=== PATIENT | male | born 1945 | race Caucasian/White ===

== ENCOUNTER 2019-12-17 05:51 | Day surgery (SDC) | payer OTHER ==
[2019-12-12 15:37] VITALS: BMI 29.0
[2019-12-17] MEDS ORDERED: oxyCODONE HCL 10 MG SUSTAINED ACTING TABLET PO ONE ×2 (06:06→07:45)
[2019-12-17] MEDS ORDERED: methylPREDNISolone ACET (DEPO) 40 MG/1 ML VIAL ONE (07:04)
[2019-12-17] MEDS ORDERED: LIDOCAINE 1%/EPI 1:100000 (20 ML MULTI DOSE VIAL) ONE (07:04)
[2019-12-17] MEDS ORDERED: GUM MASTIC/STORAX/MSAL/ALCOHOL 1 DRP DROPSBTL MC ONE (07:04)
[2019-12-17] MEDS ORDERED: MIDAZOLAM HCL 2 MG/2 ML SINGLE DOSE VIAL ONE (07:06)
[2019-12-17] MEDS ORDERED: BUPIVACAINE HCL/PF 0.5% (5 MG/ML) 30 ML VIAL IJ ONE (07:06)
[2019-12-17] MEDS ORDERED: fentaNYL CITRATE 250 MCG/5 ML VIAL ONE (07:09)
[2019-12-17] MEDS ORDERED: PROPOFOL 20 ML ONE ×2 (07:09)
[2019-12-17] MEDS ORDERED: SUCCINYLCHOLINE CHLORIDE 200 MG/10 ML SYRINGE ONE (07:10)
--- NOTE | 2019-12-17 08:07 | HP ---
History & Physical Update - History History: No Change - Physical Physical: No Change - Assessment Assessment: No Change - Plan Plan: No Change
[2019-12-17] MEDS ORDERED: ceFAZolin SODIUM 1 GM VIAL ONE (08:54)
[2019-12-17] MEDS ORDERED: ONDANSETRON 4 MG/2 ML VIAL ONE (08:54)
[2019-12-17] MEDS ORDERED: DEXAMETHASONE SOD PHOSPHATE 4 MG/1 ML VIAL ONE (08:54)
[2019-12-17] MEDS ORDERED: LIDOCAINE 1%/EPI 1:100000 (20 ML MULTI DOSE VIAL) INF ONE (09:15)
[2019-12-17] MEDS ORDERED: methylPREDNISolone ACET (DEPO) 40 MG/1 ML VIAL IM ONE (10:16)
--- NOTE | 2019-12-17 10:48 | OP ---
Operative Note - Note: Operative Date: 12/17/19 Pre-Operative Diagnosis: spinal stenosis Operation: laminectomy of L1-2, L2-3 Surgeon: Shimon Boss Supervisor Machine Setter: Mandie Hernandez Anesthesiologist/CURTAIN INSPECTOR: Amish Jo Anesthesia: Spinal Estimated Blood Loss (mls): 20 Fluid Volume Replaced (mls): 1,300 Operative Report Dictated: Yes
--- NOTE | 2019-12-17 10:50 | SURG ---
Surgery Food And Drug Inspector Note Food And Drug Inspector: Mandie Hernandez PA-C Date of Service: 12/17/19 Diagnosis: spinal stenosis Procedure: laminectomy of L1-2, L2-3 I was present for the entirety of the operative procedure. For further detail, please refer to operative report. Visit type - Case Type Case Type: Scheduled - Emergency Emergency Visit: No - New patient This patient is new to me today: Yes Date on this admission: 12/17/19
[2019-12-17] MEDS ORDERED: ONDANSETRON 4 MG/2 ML VIAL IVPUSH PRN (11:01)
[2019-12-17] MEDS ORDERED: LACTATED RINGERS SOLUTION 1,000 ML IV SCH (11:15)
[2019-12-17 13:46] VITALS: BP 129/68; PULSE 70
[2019-12-17 14:36] VITALS: TEMP 98.1
--- NOTE | 2019-12-17 16:51 | OP ---
DATE OF OPERATION: 12/17/2019 PREOPERATIVE DIAGNOSIS: Spinal stenosis L1-L3. POSTOPERATIVE DIAGNOSIS: Spinal stenosis L1-L3. PROCEDURE PERFORMED: Laminectomy L1-L3. SURGEON: Shimon Boss MD GASKET INSPECTOR: JOHN Hassan ESTIMATED BLOOD LOSS: 50 mL. INTRAVENOUS FLUIDS: Per Anesthesia. ANESTHESIA: Spinal/TLIP block. COMPLICATIONS: There were none. DISPOSITION: Patient brought to the PACU in stable condition. INDICATIONS FOR SURGERY: Patient is a 74-year-old gentleman who has been suffering from pain from his back down his legs. X-rays and MRI were completed, which noted that he had spinal stenosis at L1 down to L3. He had gone through an exhaustive course of treatment for this, which included medications, physical therapy as well as injections. Unfortunately, his pain continued to persist despite all this. At this point, risks, benefits, and alternatives were discussed, and the patient consented to surgery. DESCRIPTION OF PROCEDURE: Patient brought to the operating room by the Anesthesia staff. After appropriate patient identification was performed, spinal anesthesia was given. A TLIP block was also given. Patient was able to position himself prone onto the OR table with all areas and bony prominences well padded at this time. Two needles were placed into his back to danielito off the L1 to L3 segment. X-ray was taken to confirm this was correct. The needle was removed at this time, and the interspinous ligament at L1-2 and L2-3 was marked off. The spinous process of L2 was removed. The lamina of L2 was removed. The flavum was removed. A complete decompression was performed such that by the end of the procedure the L2 and L3 nerve roots appeared to be well decompressed. All bleeding was well controlled at this time. Steroid was placed over the nerve root. FloSeal was placed over that. The fascia was closed with a No. 1 Vicryl suture. Subcutaneous tissue was closed with 2-0 Vicryl suture. Skin was closed with 3-0 Monocryl suture. Dermabond was applied. Steri-Strips were applied. A sterile dressing was applied. Patient was placed supine on the OR bed, brought to the PACU in stable condition. SHIMON BOSS M.D. ANNA/[id number]
== END 2019-12-17 14:30 | disposition home or self-care (01) ==
LOC: FASU 05:51
PROVIDERS: ATTEND Orthopaedic Surgery Orthopaedic Surgery of the Spine
PROC: 01NB0ZZ Release Lumbar Nerve, Open Approach (ICD-10-PCS; principal; 2019-12-17 09:21)
DX: M48.061 Spinal stenosis, lumbar region without neurogenic claudication (principal)
CPT/HCPCS: 72100-TC-FY; 76000-TC-FY; 94760